=== PATIENT | male | born 2000 | race Caucasian/White ===

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

== ENCOUNTER 2021-03-27 17:08 | Emergency (ER) | payer BC, SELFPAY ==
[2021-03-27 18:55] LABS: UTC Strep Screen (Rapid) Negative (Negative)
[2021-03-27 19:01] VITALS: BP 117/61; PULSE 75; RESP 19; TEMP 37.2; O2SAT 97; BMI 23.7
--- NOTE | 2021-03-27 19:09 | HMH.EDUTC ---
[facility] [place] Clinical Impression: Encounter for laboratory testing for COVID-19 virus Disposition: Home, Self-Care Condition on Discharge: Good Instructions: DI for COVID-19 (Suspected or Confirmed ), Preventing the Spread of Coronavirus Discharge Instructions Additional Instructions: *Monitor Temp, Over the counter Motrin or Tylenol as directed/as needed Tylenol every 4 hours and Motrin every 6 hours (as long as your family doctor has told you that you can take it) for fever or pain. and straight to ER if unable to lower temp less than 101.0 after medication given *Warm salt water gargles may help to soothe the throat *Throat Lozenges *Warm fluids like tea with honey may help to soothe the throat *Sleep elevated *Humidifier/Vaporizer *Flonase 2 sprays in each nostril daily but be aware that it may take 2-3 days before you notice improvement *Bromfed may cause drowsiness. Know how it effects you (your child) before driving, caring for small child, or sending your child to school. Not other antihistamines/allergy medications while taking bromfed Your throat swab was sent for culture. Those results are typically sent to your primary care. Be sure to follow up in 2-3 days with your family doctor/primary care physician if no improvement so they can review those result and treat if necessary. If you don?t have a primary care doctor, I recommend you get one but in the mean time, you will have to return to a walk in clinic Follow up IMMEDIATELY for new or worsening symptoms or no Noticeable improvement over the next 48-72 hours. 911 for difficulty breathing or swallowing You were tested for today for COVID19 your test result should be back in the next 24-48 hours, You was given handout for instructions to log onto the [email or web address] to view your result if you are unable to log on you may call You was given a handout with instructions for Self Quarantine and Self isolation for while you wait on test results and what to do if they are positive If you are positive the Health Dept will be contacting you also Make sure to take your Vitamins Vit. C Vit D and Zinc if you can take them Forms: Work/School Release Time of Disposition: 19:13 Medical Decision Making - Ronnie Inquiry Pt receiving controlled substance: No Ronnie was queried for this patient: No Vital Signs: 09/19/21 19:01 Temperature 98.9 F Temperature Source Oral Pulse Rate [Right Brachial] 75 Respiratory Rate 19 Blood Pressure [Right Arm] 117/61 Blood Pressure Mean [Right Arm] 79 Blood Pressure Source [Right Arm] Automatic Cuff Blood Pressure Position [Right Arm] Sitting 02 Sat by Pulse Oximetry 97 Oxygen Delivery Method Room Air - Lab Data Lab Results 03/27/21 18:45: Strep Scn Rapid Clinic Negative Orders (Tests/Meds): ORDERS Category Date Time Status Covid-19 Nasal PCR ([facility]) Routine Lab 03/27/21 18:38 Received Strep Screen Confirmation Stat Micro 03/27/21 18:45 Received [facility] UTC HPI - General Stated complaint: COVID TEST Time Seen by Provider: 03/27/21 19:09 Mode of Arrival: Ambulatory Source of Information: Patient Description of Symptoms (Recalled from Triage Doc. by RN): covid symptoms. runny nose. throat. fatigue HEENT Symptoms (Recalled from RN notes): Yes Resp Symptoms (Recalled from RN notes): Yes Skin Symptoms (Recalled from RN notes): No MS Symptoms (Recalled from RN notes): No Functional Status (Recalled from RN notes): yes - History of Present Illness Provider Complaint: Patient states that he has been having body aches, chills, sore throat and feeling tired State that girlfriend is having similar symptoms so they wanted to get tested for COVID and Strep throat - Related Data Home Medications Medication Instructions Recorded Confirmed No Known Home Medications 03/27/21 03/27/21 Allergies Allergy/AdvReac Type Severity Reaction Status Date / Time Penicillins [PENICILLINS] Allergy Mild Verified 03/27/21 18:
[2021-03-27 19:33] VITALS: BP 117/61; PULSE 75; RESP 19; TEMP 37.2; O2SAT 97
== END 2021-03-27 19:33 | disposition home or self-care (01) ==
PROVIDERS: Emergency Provider Nurse Practitioner; PCP Emergency Medicine
DX: U07.1 COVID-19 (principal); Z88.0 Allergy status to penicillin
CPT/HCPCS: 87880; 99202; C9803; G0463; U0003; U0005

== ENCOUNTER 2021-07-28 20:42 | Emergency (ER) | payer BC, SELFPAY ==
[2021-07-28 21:27] VITALS: BP 93/60; PULSE 82; RESP 18; TEMP 36.8; O2SAT 99; BMI 22.4
--- NOTE | 2021-07-28 22:05 | HMH.EDUTC ---
[facility] [place] Disposition Referrals: Provider,Referral, [Primary Care Provider] - Medical Decision Making Vital Signs: 07/28/21 21:27 Temperature 98.2 F Temperature Source Oral Pulse Rate [Left] 82 Respiratory Rate 18 Blood Pressure [Right Arm] 93/60 L Blood Pressure Mean [Right Arm] 71 02 Sat by Pulse Oximetry 99 Orders (Tests/Meds): ORDERS Category Date Time Status Covid-19 Nasal PCR ([facility]) Routine Lab 07/28/21 21:29 Received [facility] [place] HPI - General Stated complaint: explosed, covid test Time Seen by Provider: 07/28/21 22:05 Mode of Arrival: Ambulatory Source of Information: Patient Limitations: No Limitations Description of Symptoms (Recalled from Triage Doc. by RN): PT WANTS A COVID TEST AFTER BEING EXPOSED TODAY. PT ALSO C/O A STOMACH ACHE AND DIARRHEA. HEENT Symptoms (Recalled from RN notes): No Resp Symptoms (Recalled from RN notes): No Skin Symptoms (Recalled from RN notes): No MS Symptoms (Recalled from RN notes): No Functional Status (Recalled from RN notes): WNL - Related Data Home Medications Medication Instructions Recorded Confirmed No Known Home Medications 03/27/21 03/27/21 Allergies Allergy/AdvReac Type Severity Reaction Status Date / Time Penicillins [PENICILLINS] Allergy Mild Verified 03/27/21 18:58 - Worker's Comp Is this a Worker's Comp case?: No [facility] History - Hepatitis A Screen Drug use history?: No High risk sexual behaviors?: No History of sexually transmitted infection?: No Currently employed?: No Childcare worker?: No Do you have indoor plumbing?: Yes Do you have electricity?: Yes Attestation statement:: This patient has been screened for Hepatitis A risk factors. - Social History Alcohol Intake: never Occupational Status: other
[2021-07-28 22:09] VITALS: BP 0/0; PULSE 0; RESP 0; TEMP -17.7; TEMP 0
== END 2021-07-28 22:10 | disposition left against medical advice (07) ==
LOC: UTC 20:46
PROVIDERS: Emergency Provider Nurse Practitioner Family
DX: Z53.21 Procedure and treatment not carried out due to patient leaving prior to being seen by health care provider (principal)

== ENCOUNTER → 2021-08-01 16:53 | Outpatient (CLI) | payer BC, SELFPAY | PROVIDERS: Visit Provider Nurse Practitioner | DX: U07.1 COVID-19 (principal) | CPT/HCPCS: C9803; U0003; U0005 ==

== ENCOUNTER 2022-01-07 20:57 | Emergency (ER) | payer BC, SELFPAY ==
[2022-01-07 20:58] VITALS: BP 118/85; PULSE 111; RESP 18; TEMP 36.9; O2SAT 95; BMI 23.7
--- NOTE | 2022-01-07 21:16 | HMH.EDMCLR ---
ED Disposition Clinical Impression: Medical clearance for incarceration Disposition: Home, Self-Care Condition on Discharge: Good Instructions: DI for Substance Use Disorder Additional Instructions: see pcp for follow up Referrals: Provider,Referral, [Primary Care Provider] - - Critical Care Critical Care Time: No Attestation: On 01/07/22, the high probability of a clinically significant, sudden or life threatening deterioration of the following system(s) required my full and direct attention, intervention and personal management. The time I documented below is in addition to time spent performing reported procedures but includes the following listed in this critical care notation. Medical Decision Making - Medical Records Medical records reviewed: Yes: I reviewed the patient's medical records. - Ronnie Inquiry Pt receiving controlled substance: No Vital Signs: 01/07/22 20:58 Temperature 98.5 F Temperature Source Oral Pulse Rate [Left] 111 H Respiratory Rate 18 Blood Pressure [Right Arm] 118/85 Blood Pressure Mean [Right Arm] 96 02 Sat by Pulse Oximetry 95 Oxygen Delivery Method Room Air Medical Decision Narrative: stable exam Medical Clearance HPI - General Chief complaint: Medical Clearance Stated complaint: medical clearance Time Seen by Provider: 01/07/22 21:16 Mode of Arrival: Ambulatory Source of Information: Patient, Medical Record Limitations: No Limitations Description of Symptoms (Recalled from ER Triage Doc. by RN): pt here for medical clearance pt has no complaints at this time - History of Present Illness HPI Narrative: no specific c/o MD complaint: medical clearance requested Reason for Medical Clearance: medical condition Place: home Traumatic Symptoms: denies traumatic injury Associated Symptoms: denies other symptoms Treatments Prior to Arrival: none Home medications: Home Medications Medication Instructions Recorded Confirmed No Known Home Medications 03/27/21 03/27/21 Allergies/Adverse reactions: Allergies Allergy/AdvReac Type Severity Reaction Status Date / Time Penicillins [PENICILLINS] Allergy Mild Verified 03/27/21 18:58 [facility] History - Hepatitis A Screen Attestation statement:: This patient has been screened for Hepatitis A risk factors. I have reviewed the patient's past medical history: Yes - Social History Alcohol Intake: never Occupational Status: other ROS Obtained: Yes All systems reviewed & no additional complaints - Constitutional Constitutional: Denies fever(s) - Eyes Eyes: Denies change in vision - ENT Ears, Nose, Mouth, and Throat: Denies sore throat - Cardiovascular Cardiovascular: Denies chest pain - Respiratory Respiratory: Denies shortness of breath - Gastrointestinal Gastrointestingal: Denies: abdominal pain - Genitourinary Male Genitourinary: Denies flank pain - Musculoskeletal Musculoskeletal: Denies joint swelling - Integumentary/Breasts Skin/Breast: Denies rash - Neurologic Neurologic: Denies headache(s), Denies seizure-like activity Physical Exam - General General appearance: alert - Head Head exam: normocephalic - Eye Eye exam: Present: PERRL, EOMI - ENT ENT exam: Present: mucous membranes moist - Neck Neck exam: Present: trachea midline - Respiratory Respiratory exam: Absent: respiratory distress - Cardiovascular Cardiovascular exam: Present: regular rate - Abdominal Exam Abdominal exam: Present: soft - Extremities Exam Extremities exam: Present: full ROM - Neurological Exam Neurological exam: Present: alert, CN II-XII intact - Skin Skin exam: Absent: rash
[2022-01-07 21:17] VITALS: BP 118/85; PULSE 91; RESP 16; TEMP 36.9; O2SAT 96
== END 2022-01-07 21:34 | disposition home or self-care (01) ==
PROVIDERS: Emergency Provider Emergency Medicine
DX: Z02.89 Encounter for other administrative examinations (principal)
CPT/HCPCS: 99282

== ENCOUNTER 2022-01-19 13:32 | Emergency (ER) | payer BC, SELFPAY ==
[2022-01-19 13:40] VITALS: BP 129/70; PULSE 94; RESP 19; TEMP 36.9; O2SAT 99; BMI 20.2
[2022-01-19 13:56] LABS: UTC Strep Screen (Rapid) Positive (Negative)
[2022-01-19 14:07] VITALS: BP 129/70; PULSE 94; RESP 19; TEMP 36.9; O2SAT 99
--- NOTE | 2022-01-19 14:08 | HMH.EDUTC ---
[facility] [place] Disposition Clinical Impression: Strep throat Disposition: Home, Self-Care Condition on Discharge: Good Instructions: Strep Throat, DI for Strep Throat Additional Instructions: *Monitor Temp, Over the counter Motrin or Tylenol as directed/as needed Tylenol every 4 hours and Motrin every 6 hours (as long as your family doctor has told you that you can take it) for fever or pain. and straight to ER if unable to lower temp less than 101.0 after medication given *Warm salt water gargles may help to soothe the throat *Throat Lozenges *Warm fluids like tea with honey may help to soothe the throat *Sleep elevated *Humidifier/Vaporizer *If you did not take Penicillin shot or was unable to, start taking antibiotic immediately and make sure that you take it for the FULL length of time although you should start to feel better in 24-48 hours *change toothbrush and toothpaste 24-48 hours after starting to take antibiotics so you do not reinfect yourself Monitor Temp. Tylenol and/or Ibuprofen as needed. ER if fever is no less than 101 despite alternating Tylenol and Ibuprofen * Encourage fluids, water, Gatorade, powerade, pedialyte if infant/toddler/or child *Cold fluids, popsicles and ice cream may feel good on his throat Follow up IMMEDIATELY for new or worsening symptoms or no Noticeable improvement over the next 48-72 hours. 911 for difficulty breathing or swallowing Prescriptions: methylPREDNISolone [Medrol 4mg tab] 4 mg PO DIRECTED #21 tab Transmission Status: Pending to [facility] Azithromycin [Z-Chu 250mg Tab] 250 mg PO DIRECTED #6 tab Transmission Status: Pending to [facility] Ondansetron [Zofran 4mg ODT] 4 mg PO TIDP PRN #9 tab PRN Reason: Nausea Transmission Status: Pending to [facility] Referrals: Provider,Referral, MD [Primary Care Provider] - As needed Time of Disposition: 14:11 Medical Decision Making - Ronnie Inquiry Pt receiving controlled substance: No Ronnie was queried for this patient: No Vital Signs: 01/19/22 13:40 Temperature 98.4 F Temperature Source Oral Pulse Rate [Left Brachial] 94 H Respiratory Rate 19 Blood Pressure [Left Arm] 129/70 Blood Pressure Mean [Left Arm] 89 Blood Pressure Source [Left Arm] Automatic Cuff Blood Pressure Position [Left Arm] Sitting 02 Sat by Pulse Oximetry 99 Oxygen Delivery Method Room Air - Lab Data Lab results reviewed: Yes: I reviewed the patient's lab results. Lab Results 01/19/22 13:55: Strep Scn Rapid Clinic Positive A [facility] [place] HPI - General Stated complaint: chest congestion, sore throat, vomiting, bodyaches Time Seen by Provider: 01/19/22 13:55 Mode of Arrival: Ambulatory Source of Information: Patient Limitations: No Limitations Description of Symptoms (Recalled from Triage Doc. by RN): PATIENT C/O SORE THROAT, VOMITING, CONGESTION AND CHILLS X 4 DAYS HEENT Symptoms (Recalled from RN notes): Yes Resp Symptoms (Recalled from RN notes): No Skin Symptoms (Recalled from RN notes): No MS Symptoms (Recalled from RN notes): No Functional Status (Recalled from RN notes): WNL - History of Present Illness Provider Complaint: Patient states that he recently got out of Shelter States that for the last 4 days he has been having sore throat, nausea, headache and body aches States that several people at nursing home had COVID but he has taken several tests and they have been negative States that he feels like he may have strep throat - Related Data Previous Rx's Medication Instructions Recorded Azithromycin [Z-Chu 250mg Tab] 250 mg PO DIRECTED #6 tab 01/19/22 Ondansetron [Zofran 4mg ODT] 4 mg PO TIDP PRN #9 tab 01/19/22 methylPREDNISolone [Medrol 4mg 4 mg PO DIRECTED #21 tab 01/19/22 tab] Allergies Allergy/AdvReac Type Severity Reaction Status Date / Time Penicillins [PENICILLINS] Allergy Mild Verified 03/27/21 18:58 - Worker's Comp Is this a Worker's Com
== END 2022-01-19 14:10 | disposition home or self-care (01) ==
PROVIDERS: Emergency Provider Nurse Practitioner
DX: J02.0 Streptococcal pharyngitis (principal)
CPT/HCPCS: 87880; 99212; G0463

== ENCOUNTER → 2022-01-24 19:40 | Outpatient (CLI) | payer BC, SELFPAY | PROVIDERS: Visit Provider Nurse Practitioner | DX: Z20.822 Contact with and (suspected) exposure to COVID-19 (principal) | CPT/HCPCS: C9803; U0003; U0005 ==

== ENCOUNTER 2022-01-29 11:14 | Emergency (ER) | payer BC, SELFPAY ==
[2022-01-29 11:20] VITALS: BP 105/59; PULSE 66; RESP 18; TEMP 36.8; O2SAT 98; BMI 20.9
--- NOTE | 2022-01-29 11:36 | HMH.EDUTC ---
[facility] [place] Clinical Impression: URI (upper respiratory infection) Qualifiers: URI type: unspecified URI Qualified Code(s): J06.9 - Acute upper respiratory infection, unspecified Disposition: Home, Self-Care Condition on Discharge: Good Instructions: DI for Cough -- Adult, DI for Nasal Congestion Additional Instructions: *Monitor Temp, Over the counter Motrin or Tylenol as directed/as needed Tylenol every 4 hours and Motrin every 6 hours (as long as your family doctor has told you that you can take it) for fever or pain. and straight to ER if unable to lower temp less than 101.0 after medication given *Warm fluids like tea with honey may help to soothe the throat *Sleep elevated *Humidifier/Vaporizer *Bromfed may cause drowsiness. Know how it effects you (your child) before driving, caring for small child, or sending your child to school. Not other antihistamines/allergy medications while taking bromfed Follow up IMMEDIATELY for new or worsening symptoms or no Noticeable improvement over the next 48-72 hours. 911 for difficulty breathing or swallowing You were tested for today for COVID19 your test result should be back in the next 24-48 hours, you may check your results on the [facility] My Health Portal Make sure to take your Vitamins Vit. C Vit D and Zinc if you can take them Prescriptions: Brompheniramine/Pseudoephed/Dm [Bromfed Dm Cough Syrup] 5 - 10 ml PO Q4-6H PRN #200 ml PRN Reason: Cough Transmission Status: Pending to [id number] Referrals: Provider,Referral, [Primary Care Provider] - As needed Time of Disposition: 11:40 Medical Decision Making - Ronnie Inquiry Pt receiving controlled substance: No Ronnie was queried for this patient: No Vital Signs: 01/29/22 11:20 Temperature 98.2 F Temperature Source Oral Pulse Rate [Left Brachial] 66 Respiratory Rate 18 Blood Pressure [Left Arm] 105/59 L Blood Pressure Mean [Left Arm] 74 Blood Pressure Source [Left Arm] Automatic Cuff Blood Pressure Position [Left Arm] Sitting 02 Sat by Pulse Oximetry 98 Oxygen Delivery Method Room Air [facility] [place] HPI - General Stated complaint: cough, congestion, runny nose Time Seen by Provider: 01/29/22 11:36 Mode of Arrival: Ambulatory Source of Information: Patient Limitations: No Limitations Description of Symptoms (Recalled from Triage Doc. by RN): PATIENT C/O COUGH AND CONGESTION X 2 WEEKS HEENT Symptoms (Recalled from RN notes): Yes Resp Symptoms (Recalled from RN notes): Yes Skin Symptoms (Recalled from RN notes): No MS Symptoms (Recalled from RN notes): No Functional Status (Recalled from RN notes): WNL - History of Present Illness Provider Complaint: Patient states that he recently had strep throat and has finished his medication but then he started with cough and nasal congestion States that he has been exposed to COVID but was tested last week and it was negative but cough has continued so he came in to get checked out - Related Data Previous Rx's Medication Instructions Recorded Azithromycin [Z-Chu 250mg Tab] 250 mg PO DIRECTED #6 tab 01/19/22 Ondansetron [Zofran 4mg ODT] 4 mg PO TIDP PRN #9 tab 01/19/22 methylPREDNISolone [Medrol 4mg 4 mg PO DIRECTED #21 tab 01/19/22 tab] Brompheniramine/Pseudoephed/Dm 5 - 10 ml PO Q4-6H PRN #200 ml 01/29/22 [Bromfed Dm Cough Syrup] Allergies Allergy/AdvReac Type Severity Reaction Status Date / Time Penicillins [PENICILLINS] Allergy Mild Verified 03/27/21 18:58 - Worker's Comp Is this a Worker's Comp case?: No [facility] History - Hepatitis A Screen Attestation statement:: This patient has been screened for Hepatitis A risk factors. I have reviewed the patient's past medical history: Yes - Social History Alcohol Intake: never Occupational Status: other ROS Obtained: Yes All systems reviewed & no additional complaints, Yes Systems reviewed as appropriate & no additional complaints - Constitutional Constitutional
[2022-01-29 12:00] VITALS: BP 105/59; PULSE 66; RESP 18; TEMP 36.8; O2SAT 98
[2022-01-29 12:12] LABS: Adenovirus,PCR Not Detected (NotDetected); Bordetella Pertussis Not Detected (NotDetected); Chlamydophila Pneumoniae, PCR Not Detected (NotDetected); Coronavirus 19, PCR Not Detected (NotDetected); Coronavirus 229E Not Detected (NotDetected); Coronavirus NL63 Not Detected (NotDetected); Coronavirus OC43 Not Detected (NotDetected); Coronovirus HKU1,PCR Not Detected (NotDetected); Human Metapneumovirus Not Detected (NotDetected); Influenza A, PCR Not Detected (NotDetected); Influenza AH1, 2009 Not Detected (NotDetected); Influenza AH1, PCR Not Detected (NotDetected); Influenza AH3,PCR Not Detected (NotDetected); Influenza B, PCR Not Detected (NotDetected); Mycoplasma Pneumoniae, PCR Not Detected (NotDetected); Parainfluenza 1, PCR Not Detected (NotDetected); Parainfluenza 2, PCR Not Detected (NotDetected); Parainfluenza 3, PCR Not Detected (NotDetected); Parainfluenza 4, PCR Not Detected (NotDetected); Respiratory Syncytial Virus Not Detected (NotDetected); Rhinovirus/Enterovirus Not Detected (NotDetected)
== END 2022-01-29 12:07 | disposition home or self-care (01) ==
PROVIDERS: Emergency Provider Nurse Practitioner
DX: J06.9 Acute upper respiratory infection, unspecified (principal)
CPT/HCPCS: 87581; 87632; 87798; 99212; C9803; G0463; U0003; U0005

== ENCOUNTER 2022-03-03 13:08 | Emergency (ER) | payer BC, SELFPAY ==
--- NOTE | 2022-03-03 14:27 | EXP.UTC ---
Discharge Plan Disposition Patient Disposition: Home, Self-Care Condition: Good Prescriptions Prescriptions: No Action azithromycin 250 MG tablet 250 mg PO DIRECTED Qty: 6 0RF Rx Instructions: Take two (2) tablets on day #1, then one (1) tablet day #2 thru #5 methylprednisolone 4 MG tablet 4 mg PO DIRECTED Qty: 21 0RF Rx Instructions: Take as directed on package instructions ondansetron 4 MG tablet,disintegrating 4 mg PO TIDP PRN (Reason: Nausea) Qty: 9 0RF uzhdofuowvgfwbu-nrjrabocc-JP 118 ML syrup 5 - 10 ml PO Q4-6H PRN (Reason: Cough) Qty: 200 0RF Referrals Referrals: Provider,Referral, MD [Primary Care Provider] - Enter time for follow up Activity Restrictions/Add. Instructions Additional Instructions/Restrictions: Drink plenty of fluids. Follow up with your regular doctor. GO TO THE ER FOR ANY WORSENING SYMPTOMS Clinical Impressions Clinical Impression: Encounter for laboratory testing for COVID-19 virus Instructions Patient Instructions: Preventing the Spread of Coronavirus Discharge Instructions Discharge ED Provider: Joel Hanna [facility] [place] General Stated complaint: Covid test Time Seen by Provider: 03/03/22 14:23 History of Present Illness Provider Complaint: He is here b/c he needs a covid-19 test to be allowed to travel. He denies any symptoms. Related Data Previous Rx's Medication Instructions Recorded azithromycin 250 mg tablet 250 mg PO DIRECTED #6 tabs 01/19/22 methylprednisolone 4 mg tablet 4 mg PO DIRECTED #21 tabs 01/19/22 ondansetron 4 mg disintegrating 4 mg PO TIDP PRN Nausea #9 tabs 01/19/22 tablet dlnlmpztdoyomtf-oyomninmjjkakhg-PH 5 - 10 ml PO Q4-6H PRN Cough #200 01/29/22 2 mg-30 mg-10 mg/5 mL oral syrup mL Allergies Allergy/AdvReac Type Severity Reaction Status Date / Time Penicillins [PENICILLINS] Allergy Mild Verified 03/27/21 18:58 [facility] Social History Smoking Status: Never smoker alcohol intake: never current occupational status: other ROS Obtained: Yes All systems reviewed & no additional complaints except as documented Constitutional Constitutional: Reports system reviewed and no additional complaints, except as documented Eyes Eyes: Reports system reviewed and no additional complaints, except as documented Cardiovascular Cardiovascular: Reports system reviewed and no additional complaints, except as documented Respiratory Respiratory: Reports system reviewed and no additional complaints, except as documented Gastrointestinal Gastrointestingal: Reports system reviewed and no additional complaints, except as documented Musculoskeletal Musculoskeletal: Reports system reviewed and no additional complaints, except as documented Integumentary/Breasts Skin/Breast: Reports system reviewed and no additional complaints, except as documented Physical Exam General General appearance: alert and in no apparent distress Head Head exam: atraumatic and normocephalic Eye Eye exam: Present normal appearance, PERRL and EOMI ENT ENT exam: Present normal exam, normal oropharynx, mucous membranes moist and TM's normal bilaterally Neck Neck exam: Present normal inspection, full ROM and trachea midline; Absent tenderness, meningismus or lymphadenopathy Chest Chest inspection: Present normal inspection and symmetric chest wall rise; Absent tenderness Respiratory Respiratory exam: Present normal lung sounds bilaterally; Absent respiratory distress, wheezes or stridor Cardiovascular Cardiovascular exam: Present regular rate, normal rhythm and normal heart sounds Abdominal Exam Abdominal exam: Present soft and normal bowel sounds; Absent distention, tenderness, guarding, rebound or rigidity Extremities Exam Extremities exam: Present normal inspection and full ROM; Absent tenderness Neurological Exam Neurological exam: Present alert and oriented X3 [facility]
[2022-03-03 14:34] VITALS: BP 110/65; PULSE 60; RESP 17; TEMP 37.3; O2SAT 99; BMI 23.1
[2022-03-03 14:39] VITALS: BP 110/65; PULSE 60; RESP 17; TEMP 37.3
== END 2022-03-03 14:39 | disposition home or self-care (01) ==
PROVIDERS: Emergency Provider Nurse Practitioner Family
DX: Z03.89 Encounter for observation for other suspected diseases and conditions ruled out (principal); Z20.822 Contact with and (suspected) exposure to COVID-19; Z79.52 Long term (current) use of systemic steroids; Z88.0 Allergy status to penicillin
CPT/HCPCS: 99213; C9803; G0463; U0003; U0005

== ENCOUNTER 2022-05-18 00:06 | Emergency (ER) | payer BC, SELFPAY ==
[2022-05-18 00:08] VITALS: BP 140/92; PULSE 103; RESP 18; TEMP 37.1; O2SAT 97; BMI 22.4
--- NOTE | 2022-05-18 01:18 | HMH.EDNVD ---
Discharge Plan Disposition Patient Disposition: Home, Self-Care Chief Complaint: Nausea/Vomiting/Diarrhea Prescriptions Prescriptions: No Action azithromycin 250 MG tablet 250 mg PO DIRECTED Qty: 6 0RF Rx Instructions: Take two (2) tablets on day #1, then one (1) tablet day #2 thru #5 methylprednisolone 4 MG tablet 4 mg PO DIRECTED Qty: 21 0RF Rx Instructions: Take as directed on package instructions ondansetron 4 MG tablet,disintegrating 4 mg PO TIDP PRN (Reason: Nausea) Qty: 9 0RF blxiyoxrbzzwyoc-bkhlifgvb-DL 118 ML syrup 5 - 10 ml PO Q4-6H PRN (Reason: Cough) Qty: 200 0RF Referrals Follow up/Referrals: Provider,Referral, MD [Primary Care Provider] - See instructions Clinical Impressions Clinical Impression: Gastroenteritis Stand Alone Forms Stand Alone Forms: Work/School Release Instructions Patient Instructions: DI for Nausea -- Adult Discharge ED Provider: Srinivasan Crowder Nausea/Vomiting/Diarrhea HPI General Chief complaint: Nausea/Vomiting/Diarrhea Stated complaint: vomiting X 1 week Time Seen by Provider: 05/18/22 01:18 Mode of Arrival: Ambulatory Source of Information: Patient, Significant Other and Medical Record Limitations: No Limitations Description of Symptoms (Recalled from ER Triage Doc. by RN): Pt c/o vomiting prior week. Denies any diarrhea. States that the vomiting happens randomly. History of Present Illness HPI Narrative: over the last week with vomiting complaint: nausea and vomiting Onset (ago): day(s) Associated Abdominal Pain: No Severity: moderate Associated symptoms: denies other symptoms Related Data Previous Rx's Medication Instructions Recorded azithromycin 250 mg tablet 250 mg PO DIRECTED #6 tabs 01/19/22 methylprednisolone 4 mg tablet 4 mg PO DIRECTED #21 tabs 01/19/22 ondansetron 4 mg disintegrating 4 mg PO TIDP PRN Nausea #9 tabs 01/19/22 tablet dqehehtfjmqiusx-xblymlxclcntmxi-TZ 5 - 10 ml PO Q4-6H PRN Cough #200 01/29/22 2 mg-30 mg-10 mg/5 mL oral syrup mL Allergies Allergy/AdvReac Type Severity Reaction Status Date / Time Penicillins [PENICILLINS] Allergy Mild Verified 03/27/21 18:58 PFSH PFSH Social History (Updated 08/26/22 @ 22:33 by TIFFANIE Kaba Smoking Status: Current every day smoker alcohol intake: never current occupational status: other Travel in the last 8 weeks: None ROS Obtained: Yes All systems reviewed & no additional complaints except as documented Physical Exam General General appearance: alert Head Head exam: normocephalic Eye Eye exam: Present PERRL and EOMI ENT ENT exam: Present mucous membranes moist Neck Neck exam: Present trachea midline Chest Chest inspection: Absent rash Respiratory Respiratory exam: Absent respiratory distress Cardiovascular Cardiovascular exam: Present regular rate Abdominal Exam Abdominal exam: Present soft; Absent tenderness, guarding, rebound or rigidity Extremities Exam Extremities exam: Present full ROM Neurological Exam Neurological exam: Present alert, oriented X3 and CN II-XII intact; Absent motor sensory deficit Skin Skin exam: Absent rash Medical Decision Making Medical Records Medical records reviewed: Yes I reviewed the patient's medical records. Ronnie Inquiry Pt receiving controlled substance: No Vital Signs: 05/18/22 00:08 Temperature 98.7 F Temperature Source Oral Pulse Rate [Apical] 103 H Respiratory Rate 18 Blood Pressure [Right Arm] 140/92 H Blood Pressure Mean [Right Arm] 108 Blood Pressure Source [Right Arm] Automatic Cuff Blood Pressure Position [Right Arm] Sitting 02 Sat by Pulse Oximetry 97 Oxygen Delivery Method Room Air Lab Data Lab results reviewed: Yes I reviewed the patient's lab results. Medical Decision Narrative: has vomiting with stable exam Critical Care Time Critical Care Time Critical Care Time: No Attestation: On 05/18/22, the high probability of a clinically
[2022-05-18 01:23] VITALS: BP 121/64; PULSE 84; RESP 18; TEMP 36.6; O2SAT 96
== END 2022-05-18 01:34 | disposition home or self-care (01) ==
PROVIDERS: Emergency Provider Emergency Medicine
DX: R11.2 Nausea with vomiting, unspecified (principal); R19.7 Diarrhea, unspecified; R05.9 Cough, unspecified; F17.210 Nicotine dependence, cigarettes, uncomplicated; Z79.52 Long term (current) use of systemic steroids; Z79.899 Other long term (current) drug therapy; Z88.0 Allergy status to penicillin
CPT/HCPCS: 99283

== ENCOUNTER 2022-05-26 22:49 | Emergency (ER) | payer BC, SELFPAY ==
[2022-05-26 22:49] VITALS: BP 142/90; PULSE 105; RESP 20; TEMP 36.9; O2SAT 97; BMI 22.4
--- NOTE | 2022-05-26 23:47 | HMH.EDNVD ---
Discharge Plan Disposition Patient Disposition: Home, Self-Care Prescriptions Prescriptions: New ondansetron HCl 4 mg Tablet 4 mg PO Q8H PRN (Reason: Nausea) Qty: 20 0RF No Action azithromycin 250 MG tablet 250 mg PO DIRECTED Qty: 6 0RF Rx Instructions: Take two (2) tablets on day #1, then one (1) tablet day #2 thru #5 methylprednisolone 4 MG tablet 4 mg PO DIRECTED Qty: 21 0RF Rx Instructions: Take as directed on package instructions ondansetron 4 MG tablet,disintegrating 4 mg PO TIDP PRN (Reason: Nausea) Qty: 9 0RF tqhglvabbrgmkwc-dgqrfbixs-PU 118 ML syrup 5 - 10 ml PO Q4-6H PRN (Reason: Cough) Qty: 200 0RF Referrals Follow up/Referrals: Provider,Referral, MD [Primary Care Provider] - See instructions Clinical Impressions Clinical Impression: Vomiting, URI (upper respiratory infection) Stand Alone Forms Stand Alone Forms: Work/School Release Instructions Patient Instructions: DI for Nausea -- Adult Discharge ED Provider: Srinivasan Crowder Nausea/Vomiting/Diarrhea HPI General Chief complaint: Nausea/Vomiting/Diarrhea Stated complaint: vomiting Time Seen by Provider: 05/26/22 23:47 Mode of Arrival: Ambulatory Source of Information: Patient and Medical Record Limitations: No Limitations Description of Symptoms (Recalled from ER Triage Doc. by RN): pt states that he has been vomiting for a week but today he threw up 5 or 6 times today pt stated that he felt better after he ate something. pt stated it felt like the flu when he was throwing up History of Present Illness HPI Narrative: pt with flu like sx and vomiting and presented for [facility]OR[facility] complaint: nausea and vomiting Onset (ago): hour(s) Associated Abdominal Pain: No Associated symptoms: denies other symptoms Related Data Previous Rx's Medication Instructions Recorded azithromycin 250 mg tablet 250 mg PO DIRECTED #6 tabs 01/19/22 methylprednisolone 4 mg tablet 4 mg PO DIRECTED #21 tabs 01/19/22 ondansetron 4 mg disintegrating 4 mg PO TIDP PRN Nausea #9 tabs 01/19/22 tablet kwlvkelitkpkurf-wktnoasetupjcew-YS 5 - 10 ml PO Q4-6H PRN Cough #200 01/29/ 2 mg-30 mg-10 mg/5 mL oral syrup mL ondansetron HCl 4 mg tablet 4 mg PO Q8H PRN Nausea #20 tabs 05/27/22 Allergies Allergy/AdvReac Type Severity Reaction Status Date / Time Penicillins [PENICILLINS] Allergy Mild Verified 03/27/21 18:58 PFSH PFS Social History (Updated 03/03/22 @ 22:33 by Joel Hanna APRN) Smoking Status: Current some day smoker alcohol intake: never current occupational status: other Travel in the last 8 weeks: None ROS Obtained: Yes All systems reviewed & no additional complaints except as documented Physical Exam General General appearance: alert Head Head exam: normocephalic Eye Eye exam: Present PERRL and EOMI ENT ENT exam: Present mucous membranes moist Neck Neck exam: Present trachea midline Respiratory Respiratory exam: Absent respiratory distress Cardiovascular Cardiovascular exam: Present regular rate Abdominal Exam Abdominal exam: Present soft Extremities Exam Extremities exam: Present full ROM Neurological Exam Neurological exam: Present alert, oriented X3 and CN II-XII intact Psychiatric Psychiatric exam: Present normal affect Skin Skin exam: Absent rash Medical Decision Making Medical Records Medical records reviewed: Yes I reviewed the patient's medical records. Ronnie Inquiry Pt receiving controlled substance: No Vital Signs: 05/26/22 22:49 Temperature 98.4 F Temperature Source Oral Pulse Rate [Left] 105 H Respiratory Rate 20 Blood Pressure [Right Arm] 142/90 H Blood Pressure Mean [Right Arm] 107 02 Sat by Pulse Oximetry 97 Oxygen Delivery Method Room Air Lab Data Lab results reviewed: Yes I reviewed the patient's lab results. Orders (Tests/Meds): ORDERS Category Date Time Status Rapid PCR Covid and Flu A/B Stat Lab 05/26/22 23:50 Received M
[2022-05-26 23:55] LABS: Coronavirus 19, PCR Not Detected (NotDetected); Influenza A, PCR Not Detected (NotDetected); Influenza B, PCR Not Detected (NotDetected)
[2022-05-26 23:59] VITALS: BP 142/90; PULSE 91; RESP 18; TEMP 36.9; O2SAT 97
== END 2022-05-27 00:07 | disposition home or self-care (01) ==
PROVIDERS: Emergency Provider Emergency Medicine
DX: J06.9 Acute upper respiratory infection, unspecified (principal); R11.2 Nausea with vomiting, unspecified; Z88.0 Allergy status to penicillin; Z72.0 Tobacco use
CPT/HCPCS: 99283; C9803; U0003; U0005

== ENCOUNTER 2022-06-20 22:38 | Emergency (ER) | payer BC, SELFPAY ==
[2022-06-20 22:52] VITALS: BP 123/78; PULSE 77; RESP 18; TEMP 36.6; O2SAT 97; BMI 23.1
--- NOTE | 2022-06-20 22:54 | PC.NURSE ---
Patient presents to er pov. States that he has been vomiting with a headache for the prior two days and was exposed to his mother who has the flu. Despite his symptoms, patients initially requests to not be treated, just to be given a work excuse and a rapid flu test and would like to just get his results tomorrow. However, per protocol, patient will need to see physician before receiving a work excuse since he is symptomatic. Additionally, work note is pending flu results as his length of time off from work will depend on those results.
[2022-06-20 23:31] LABS: Coronavirus 19, PCR Not Detected (NotDetected); Influenza A, PCR Not Detected (NotDetected); Influenza B, PCR Not Detected (NotDetected)
--- NOTE | 2022-06-20 23:32 | HMH.EDNVD ---
Discharge Plan Disposition Patient Disposition: Home, Self-Care Prescriptions Prescriptions: New ondansetron HCl 4 mg Tablet 4 mg PO Q8H PRN (Reason: Nausea) Qty: 20 0RF No Action azithromycin 250 MG tablet 250 mg PO DIRECTED Qty: 6 0RF Rx Instructions: Take two (2) tablets on day #1, then one (1) tablet day #2 thru #5 methylprednisolone 4 MG tablet 4 mg PO DIRECTED Qty: 21 0RF Rx Instructions: Take as directed on package instructions ondansetron 4 MG tablet,disintegrating 4 mg PO TIDP PRN (Reason: Nausea) Qty: 9 0RF kuqsnzyiquotpdw-ghevuextu-DE 118 ML syrup 5 - 10 ml PO Q4-6H PRN (Reason: Cough) Qty: 200 0RF ondansetron HCl 4 mg Tablet 4 mg PO Q8H PRN (Reason: Nausea) Qty: 20 0RF Referrals Follow up/Referrals: Provider,Referral, MD [Primary Care Provider] - See instructions Clinical Impressions Clinical Impression: Acute viral syndrome Stand Alone Forms Stand Alone Forms: Work/School Release Instructions Patient Instructions: DI for Nausea -- Adult Discharge ED Provider: Srinivasan Crowder Nausea/Vomiting/Diarrhea HPI General Chief complaint: Nausea/Vomiting/Diarrhea Stated complaint: vomiting, sore throat, FREY Time Seen by Provider: 06/20/22 23:32 Mode of Arrival: Ambulatory Source of Information: Patient and Medical Record Limitations: No Limitations Description of Symptoms (Recalled from ER Triage Doc. by RN): Patient presents to er requesting flu swab and work note. Patient says his mother has had the flu and he has been vomiting for 2 days with a headache. History of Present Illness HPI Narrative: pt with gi sx and congestion with exposure to flu - complaint: vomiting Onset (ago): day(s) Associated Abdominal Pain: No Severity: moderate Context: sick contacts Related Data Previous Rx's Medication Instructions Recorded azithromycin 250 mg tablet 250 mg PO DIRECTED #6 tabs 01/19/22 methylprednisolone 4 mg tablet 4 mg PO DIRECTED #21 tabs 01/19/22 ondansetron 4 mg disintegrating 4 mg PO TIDP PRN Nausea #9 tabs 01/19/22 tablet qbhrmxezfnsmppc-loxurezsvqakloj-JY 5 - 10 ml PO Q4-6H PRN Cough #200 01/29/22 2 mg-30 mg-10 mg/5 mL oral syrup mL ondansetron HCl 4 mg tablet 4 mg PO Q8H PRN Nausea #20 tabs 05/27/22 ondansetron HCl 4 mg tablet 4 mg PO Q8H PRN Nausea #20 tabs 06/20/22 Allergies Allergy/AdvReac Type Severity Reaction Status Date / Time Penicillins [PENICILLINS] Allergy Mild Verified 03/27/21 18:58 [facility] Disclaimer: The information contained in this section may have been updated after the patient was seen, as this information can be updated by other users. Social History (Updated 03/03/22 @ 22:33 by Joel Hanna APRN) Smoking Status: Current every day smoker alcohol intake: never current occupational status: other Travel in the last 8 weeks: None ROS Obtained: Yes All systems reviewed & no additional complaints except as documented Physical Exam General General appearance: alert Head Head exam: normocephalic Eye Eye exam: Present PERRL and EOMI ENT ENT exam: Present mucous membranes moist Neck Neck exam: Present trachea midline Respiratory Respiratory exam: Absent respiratory distress Cardiovascular Cardiovascular exam: Present regular rate Abdominal Exam Abdominal exam: Present soft Extremities Exam Extremities exam: Present full ROM Neurological Exam Neurological exam: Present alert, oriented X3 and CN II-XII intact Psychiatric Psychiatric exam: Present normal affect Skin Skin exam: Absent rash Medical Decision Making Medical Records Medical records reviewed: Yes I reviewed the patient's medical records. Ronnie Inquiry Pt receiving controlled substance: No Vital Signs: 06/20/22 22:52 Temperature 97.8 F Temperature Source Oral Pulse Rate [Apical] 77 Respiratory Rate 18 Blood Pressure [Right Arm] 123/78 Blood Pressure Mean [Right Arm] 93 Blood Pressure Source [Right Arm] Auto
[2022-06-20 23:38] VITALS: BP 118/72; PULSE 88; RESP 20; TEMP 37; O2SAT 98
== END 2022-06-20 23:43 | disposition home or self-care (01) ==
PROVIDERS: Emergency Provider Emergency Medicine
DX: R11.2 Nausea with vomiting, unspecified (principal); R19.7 Diarrhea, unspecified; B34.9 Viral infection, unspecified
CPT/HCPCS: 99283; C9803; U0003; U0005

== ENCOUNTER 2022-06-27 23:25 | Emergency (ER) | payer BC, SELFPAY ==
[2022-06-27 23:26] VITALS: BP 131/60; PULSE 83; RESP 16; TEMP 36.9; O2SAT 99; BMI 22.4
[2022-06-27 23:40] LABS: Microscopic, Urine URINE MICROSCOPIC (MICROSCOPIC)
[2022-06-27 23:59] LABS: Chloride 101 mmol/L (98-107); Sodium 141 mmol/L (136-145)
[2022-06-27 23:59] LABS: Appearance,Urine CLOUDY (Clear); Blood, Urine 3+ (Negative); Color,Urine BROWN (Yellow); Glucose,Urine (UA) Negative (Negative); Ketones,Urine Negative (Negative); Leukocyte Esterase,Urine Negative (Negative); Nitrate,Urine Negative (Negative); PH,Urine 6.5 (5.0-8.5); Protein,Urine 1+ (Negative); Specific Gravity, Urine 1.025 (1.005-1.030)
[2022-06-28] LABS: Potassium 3.5 mmoL/L (3.5-5.1)
--- NOTE | 2022-06-28 | CT_ITS ---
PROCEDURE INFORMATION: Exam: CT Abdomen And Pelvis With Contrast Exam date and time: 06/28/2022 12:06 AM Age: 22 years old Clinical indication: Abdominal pain; Localized; Left lower quadrant (llq); Additional info: Llq pain TECHNIQUE: Imaging protocol: Computed tomography of the abdomen and pelvis with contrast. Radiation optimization: All CT scans at this facility use at least one of these dose optimization techniques: automated exposure control; mA and/or kV adjustment per patient size (includes targeted exams where dose is matched to clinical indication); or iterative reconstruction. Contrast material: ISOVUE; Contrast volume: 75 ml; Contrast route: IV; COMPARISON: No relevant prior studies available. FINDINGS: Lungs: The lung bases are clear. No pleural effusion. Liver: Unremarkable. No mass. Gallbladder and bile ducts: Unremarkable. No calcified stones. No ductal dilation. Pancreas: Unremarkable. Spleen: Unremarkable. 1 cm accessory splenule left upper quadrant. Adrenal glands: Unremarkable. Kidneys and ureters: No renal mass or hydronephrosis. Stomach and bowel: There is mild mucosal thickening of multiple loops of proximal nondilated small bowel. No evidence of obstruction. No colonic diverticulosis or CT evidence of acute diverticulitis. Appendix: The appendix is not identified with certainty on the study. There is no convincing evidence of acute appendicitis. Intraperitoneal space: No free air. No significant fluid collection. Retroperitoneal space: No bulky lymphadenopathy. Vasculature: Unremarkable. No abdominal aortic aneurysm. Lymph nodes: Unremarkable. No enlarged lymph nodes. Urinary bladder: Unremarkable as visualized. Reproductive: Unremarkable as visualized. Bones/joints: Unremarkable. No acute osseous abnormality. Soft tissues: Unremarkable. IMPRESSION: 1. Findings suggest enteritis. 2. No evidence of appendicitis.
[2022-06-28 00:02] LABS: Alanine Aminotransferase 24 U/L (12-78); Alkaline Phosphatase 78 U/L (38-126); Amylase 68 U/L (30-110); Anion Gap 10.5 mEq/L (5-15); Aspartate Amino Transferase 32 U/L (17-59); Blood Urea Nitrogen 12 mg/dl (9-20); Calcium 9.5 mg/dl (8.4-10.2); Carbon Dioxide 33 mmol/L (22.0-30.0); Creatinine Clearance Estimated 142 mL/min (50-200); Estimated Glomerular Filt Rate 107 ml/min (>60); GFR (African American) 129 ML/MIN (>60); Glucose 98 mg/dl (74-100); Lipase 120 U/L (23-300)
--- NOTE | 2022-06-28 00:02 | PC.NURSE ---
Pt gone to RAD
[2022-06-28 00:03] LABS: Albumin Level 4.8 g/dl (3.5-5.0); Globulin 2.4 g/dL (1.3-3.2); Total Protein,Serum 7.2 g/dl (6.3-8.2)
[2022-06-28 00:04] LABS: Bilirubin,Total 0.1 mg/dl (0.2-1.3)
[2022-06-28 00:04] LABS: Bilirubin,Urine Negative (Negative)
--- NOTE | 2022-06-28 00:15 | PC.NURSE ---
Pt back from RAD
[2022-06-28 00:22] LABS: Bacteria,Urine 1+ /lpf; RBC,Urine TNTC #/hpf (0-3); WBC,Urine Occasional #/hpf (0-3)
[2022-06-28 00:22] LABS: Basophils # 0.1 K/mm3 (0-0.2); Basophils % 1.1 % (0.1-2.0); Eosinophils # 0.1 K/mm3 (0.0-0.4); Eosinophils % 1.7 % (0.1-12.0); Hematocrit 41.3 % (42.0-52.0); Hemoglobin 13.5 g/dL (14.1-18.0); Lymphocytes % 27.8 % (10-50); Mean Corpuscular HGB Conc 32.5 g/dL (31.8-35.4); Mean Corpuscular Volume 95.3 fl (80-94); Mean Platelet Volume 7.5 fl (7.4-10.4); Monocytes # 0.4 K/mm3 (0.1-1.0); Monocytes % 5.1 % (1.7-9.3); Neutrophils # 4.6 K/mm3 (1.8-7.8); Neutrophils % 64.4 % (37.0-80.0); Platelet Count 285 K/mm3 (142-424); Red Blood Count 4.34 M/mm3 (4.60-6.20); Red Cell Distribution Width 12.9 % (11.5-17.5); White Blood Count 7.1 K/mm3 (4.8-10.8)
--- NOTE | 2022-06-28 01:03 | HMH.EDABDPAI ---
Discharge Plan Disposition Patient Disposition: Home, Self-Care Chief Complaint: Abdominal Pain Prescriptions Prescriptions: No Action azithromycin 250 MG tablet 250 mg PO DIRECTED Qty: 6 0RF Rx Instructions: Take two (2) tablets on day #1, then one (1) tablet day #2 thru #5 methylprednisolone 4 MG tablet 4 mg PO DIRECTED Qty: 21 0RF Rx Instructions: Take as directed on package instructions ondansetron 4 MG tablet,disintegrating 4 mg PO TIDP PRN (Reason: Nausea) Qty: 9 0RF psddbwwadexxnfj-fugyojbsz-GJ 118 ML syrup 5 - 10 ml PO Q4-6H PRN (Reason: Cough) Qty: 200 0RF ondansetron HCl 4 mg Tablet 4 mg PO Q8H PRN (Reason: Nausea) Qty: 20 0RF ondansetron HCl 4 mg Tablet 4 mg PO Q8H PRN (Reason: Nausea) Qty: 20 0RF Referrals Follow up/Referrals: Provider,Referral, MD [Primary Care Provider] - See instructions Clinical Impressions Clinical Impression: Hematuria Instructions Patient Instructions: DI for Hematuria Discharge ED Provider: Srinivasan Crowder Abdominal Pain HPI General Chief Complaint: Abdominal Pain Stated Complaint: peeing blood Time Seen by Provider: 06/28/22 00:00 Mode of Arrival: Ambulatory Source of Information: Patient and Medical Record Limitations: No Limitations Description of Symptoms (Recalled from ER Triage Doc. by RN): pt states he was urinating blood on sunday and resolved on sunday. pt c/o LLQ pain that started yesterday. pt denies any n/v/d History of Present Illness HPI narrative: episode of blood in urine a few days ago - now with abd pain - no fever/rash or trauma complaint: abdominal pain Onset (ago): day(s) Consistency: intermittent Severity: moderate Associated symptoms: denies other symptoms Related Data Previous Rx's Medication Instructions Recorded azithromycin 250 mg tablet 250 mg PO DIRECTED #6 tabs 01/19/22 methylprednisolone 4 mg tablet 4 mg PO DIRECTED #21 tabs 01/19/22 ondansetron 4 mg disintegrating 4 mg PO TIDP PRN Nausea #9 tabs 01/19/22 tablet aqtvyninvozfcat-czfprwkymiemjdo-ZT 5 - 10 ml PO Q4-6H PRN Cough #200 07/24/22 2 mg-30 mg-10 mg/5 mL oral syrup mL ondansetron HCl 4 mg tablet 4 mg PO Q8H PRN Nausea #20 tabs 05/27/22 ondansetron HCl 4 mg tablet 4 mg PO Q8H PRN Nausea #20 tabs 06/20/22 Allergies Allergy/AdvReac Type Severity Reaction Status Date / Time Penicillins [PENICILLINS] Allergy Mild Verified 03/27/21 18:58 PFSH PFS Disclaimer: The information contained in this section may have been updated after the patient was seen, as this information can be updated by other users. Social History (Updated 03/03/22 @ 22:33 by Joel Hanna APRN) Smoking Status: Current every day smoker alcohol intake: never current occupational status: other Travel in the last 8 weeks: None ROS Obtained: Yes All systems reviewed & no additional complaints except as documented Physical Exam General General appearance: alert Head Head exam: normocephalic Eye Eye exam: Present PERRL and EOMI ENT ENT exam: Present mucous membranes moist Neck Neck exam: Present full ROM Respiratory Respiratory exam: Absent respiratory distress Cardiovascular Cardiovascular exam: Present regular rate Abdominal Exam Abdominal exam: Present soft; Absent tenderness, guarding or rebound Extremities Exam Extremities exam: Present full ROM Back Exam Back exam: Absent CVA tenderness (L) Neurological Exam Neurological exam: Present alert, oriented X3 and CN II-XII intact Psychiatric Psychiatric exam: Present normal affect Skin Skin exam: Absent rash Medical Decision Making Medical Records Medical records reviewed: Yes I reviewed the patient's medical records. Ronnie Inquiry Pt receiving controlled substance: No Vital Signs: 06/27/22 23:26 Temperature 98.5 F Temperature Source Oral Pulse Rate [Right] 83 Respiratory Rate 16 Blood Pressure [Right Arm] 131/60 Blood Pressure Mean [Right Arm] 83 02 Sa
[2022-06-28 02:00] VITALS: BP 127/87; PULSE 81; RESP 16; TEMP 36.9; O2SAT 99
== END 2022-06-28 02:02 | disposition home or self-care (01) ==
PROVIDERS: Emergency Provider Emergency Medicine
DX: R10.32 Left lower quadrant pain (principal); R31.9 Hematuria, unspecified; R11.0 Nausea; F17.200 Nicotine dependence, unspecified, uncomplicated; Z88.0 Allergy status to penicillin
CPT/HCPCS: 74177; 80053; 81001; 82150; 83690; 85025; 87086; 96361; 96374; 99285; Q9967

== ENCOUNTER 2022-07-03 00:42 | Emergency (ER) | payer BC, SELFPAY ==
[2022-07-03 00:43] VITALS: BP 103/67; PULSE 104; RESP 18; TEMP 36.7; O2SAT 100; BMI 22.4
--- NOTE | 2022-07-03 01:33 | CT_ITS ---
PROCEDURE INFORMATION: Exam: CT Abdomen And Pelvis With Contrast Exam date and time: 07/03/2022 2:36 AM Age: 22 years old Clinical indication: Nausea and vomiting; Abdominal pain; Additional info: Abd pain, nausea, vomiting. TECHNIQUE: Imaging protocol: Computed tomography of the abdomen and pelvis with contrast. Radiation optimization: All CT scans at this facility use at least one of these dose optimization techniques: automated exposure control; mA and/or kV adjustment per patient size (includes targeted exams where dose is matched to clinical indication); or iterative reconstruction. Contrast material: ISOVUE; Contrast volume: 75 ml; Contrast route: IV; COMPARISON: CT ABDOMEN PELVIS W CON 06/28/2022 12:06 AM FINDINGS: Liver: No acute findings. No mass. Gallbladder and bile ducts: No acute findings, calcified stones or ductal dilation. Pancreas: No acute findings, focal abnormality or ductal dilation. Spleen: No splenomegaly or focal abnormality. Adrenal glands: Normal. No mass. Kidneys and ureters: There is a 2 x 4 x 4 mm calculus in the upper right ureter at the ureteropelvic junction. There is subtle right-sided renal pelvis fullness. Stomach and bowel: No obstruction. No mucosal thickening. Appendix: No evidence of appendicitis. Intraperitoneal space: No free air. No significant fluid collection. Vasculature: No abdominal aortic aneurysm. Lymph nodes: No pathologically enlarged lymph nodes. Urinary bladder: Unremarkable as visualized. Reproductive: Unremarkable as visualized. Bones/joints: No acute fracture. Soft tissues: No acute findings. IMPRESSION: Calculus in the upper right ureter at the ureteropelvic junction with subtle associated pelviectasis.
[2022-07-03 01:37] LABS: Coronavirus 19, PCR Not Detected (NotDetected); Influenza A, PCR Not Detected (NotDetected); Influenza B, PCR Not Detected (NotDetected)
[2022-07-03 01:45] LABS: Basophils % 0.3 % (0.1-2.0); Eosinophils # 0.2 K/mm3 (0.0-0.4); Eosinophils % 1.5 % (0.1-12.0); Hematocrit 46.8 % (42.0-52.0); Hemoglobin 15.4 g/dL (14.1-18.0); Lymphocytes # 0.4 K/mm3 (0.7-4.5); Mean Corpuscular Hemoglobin 31.7 pg (27.0-31.2); Mean Platelet Volume 7.1 fl (7.4-10.4); Monocytes # 0.5 K/mm3 (0.1-1.0); Monocytes % 3.4 % (1.7-9.3); Neutrophils # 12.7 K/mm3 (1.8-7.8); Neutrophils % 91.8 % (37.0-80.0); Platelet Count 287 K/mm3 (142-424); Red Blood Count 4.88 M/mm3 (4.60-6.20); Red Cell Distribution Width 13.1 % (11.5-17.5); White Blood Count 13.8 K/mm3 (4.8-10.8)
[2022-07-03 01:47] LABS: MANUAL DIFFERENTIAL MANUAL DIFFERENTIAL (MANUAL DIFF)
[2022-07-03 01:55] LABS: Alanine Aminotransferase 31 U/L (12-78); Albumin Level 5.1 g/dl (3.5-5.0); Albumin/Globulin Ratio 1.9 (1.1-1.8); Alkaline Phosphatase 74 U/L (38-126); Anion Gap 14.9 mEq/L (5-15); Aspartate Amino Transferase 46 U/L (17-59); Bilirubin,Total 0.7 mg/dl (0.2-1.3); Blood Urea Nitrogen 13 mg/dl (9-20); Calcium 9.9 mg/dl (8.4-10.2); Carbon Dioxide 27 mmol/L (22.0-30.0); Chloride 102 mmol/L (98-107); Creatinine Clearance Estimated 159 mL/min (50-200); Estimated Glomerular Filt Rate 122 ml/min (>60); GFR (African American) 148 ML/MIN (>60); Globulin 2.7 g/dL (1.3-3.2); Glucose 131 mg/dl (74-100); Lymphocytes % 11 % (10-50); Neutrophils % 80 % (42-76); Platelet Estimate Normal; Potassium 3.9 mmoL/L (3.5-5.1); RBC Morphology Normal; Sodium 140 mmol/L (136-145); Total Cells Counted 100; Total Protein,Serum 7.8 g/dl (6.3-8.2)
[2022-07-03 02:01] LABS: Strep Scrn Group A (Rapid) Negative (Negative)
--- NOTE | 2022-07-03 02:04 | HMH.EDNVD ---
Discharge Plan Disposition Patient Disposition: Home, Self-Care Prescriptions Prescriptions: New ondansetron HCl 4 mg Tablet 4 mg PO Q8H PRN (Reason: Nausea) Qty: 20 0RF tamsulosin [Flomax] 0.4 mg capsule 0.4 mg PO DAILY Qty: 10 0RF No Action azithromycin 250 MG tablet 250 mg PO DIRECTED Qty: 6 0RF Rx Instructions: Take two (2) tablets on day #1, then one (1) tablet day #2 thru #5 methylprednisolone 4 MG tablet 4 mg PO DIRECTED Qty: 21 0RF Rx Instructions: Take as directed on package instructions ondansetron 4 MG tablet,disintegrating 4 mg PO TIDP PRN (Reason: Nausea) Qty: 9 0RF [id number] 118 ML syrup 5 - 10 ml PO Q4-6H PRN (Reason: Cough) Qty: 200 0RF ondansetron HCl 4 mg Tablet 4 mg PO Q8H PRN (Reason: Nausea) Qty: 20 0RF ondansetron HCl 4 mg Tablet 4 mg PO Q8H PRN (Reason: Nausea) Qty: 20 0RF Referrals Follow up/Referrals: Provider,Referral, MD [Primary Care Provider] - See instructions Clinical Impressions Clinical Impression: Renal colic on right side Instructions Patient Instructions: DI for Nausea -- Adult, DI for Kidney Stones Discharge ED Provider: Srinivasan Crowder Nausea/Vomiting/Diarrhea HPI General Chief complaint: Nausea/Vomiting/Diarrhea Stated complaint: vomiting,fever, chills Time Seen by Provider: 07/03/22 02:05 Mode of Arrival: Ambulatory Source of Information: Patient and Medical Record Limitations: No Limitations Description of Symptoms (Recalled from ER Triage Doc. by RN): pt c/o vomiting for an hour. feels so bad History of Present Illness HPI Narrative: pt with acute abd pain and vomiting - no fever or gross hematuria complaint: nausea, vomiting and abdominal pain Onset (ago): day(s) Associated Abdominal Pain: Yes Location of pain: diffuse Severity: similar to previous episodes Consistency: intermittent Associated symptoms: denies other symptoms Related Data Previous Rx's Medication Instructions Recorded azithromycin 250 mg tablet 250 mg PO DIRECTED #6 tabs 01/19/22 methylprednisolone 4 mg tablet 4 mg PO DIRECTED #21 tabs 01/19/22 ondansetron 4 mg disintegrating 4 mg PO TIDP PRN Nausea #9 tabs 01/19/22 tablet rsbsehzcfenffsj-vgjxzrskgeksoic-WK 5 - 10 ml PO Q4-6H PRN Cough #200 01/29/22 2 mg-30 mg-10 mg/5 mL oral syrup mL ondansetron HCl 4 mg tablet 4 mg PO Q8H PRN Nausea #20 tabs 05/27/22 ondansetron HCl 4 mg tablet 4 mg PO Q8H PRN Nausea #20 tabs 06/20/22 ondansetron HCl 4 mg tablet 4 mg PO Q8H PRN Nausea #20 tabs 07/03/22 tamsulosin 0.4 mg capsule (Flomax) 0.4 mg PO DAILY #10 caps 07/03/22 Allergies Allergy/AdvReac Type Severity Reaction Status Date / Time Penicillins [PENICILLINS] Allergy Mild Verified 03/27/21 18:58 PFSH PFS Disclaimer: The information contained in this section may have been updated after the patient was seen, as this information can be updated by other users. Social History (Updated 03/03/22 @ 22:33 by Joel Hanna APRN) Smoking Status: Current every day smoker alcohol intake: never current occupational status: other Travel in the last 8 weeks: None ROS Obtained: Yes All systems reviewed & no additional complaints except as documented Physical Exam General General appearance: alert Head Head exam: normocephalic Eye Eye exam: Present PERRL and EOMI ENT ENT exam: Present mucous membranes moist Neck Neck exam: Present trachea midline Respiratory Respiratory exam: Present normal lung sounds bilaterally; Absent respiratory distress Cardiovascular Cardiovascular exam: Present regular rate; Absent systolic murmur Abdominal Exam Abdominal exam: Present soft; Absent tenderness Extremities Exam Extremities exam: Present full ROM Neurological Exam Neurological exam: Present alert, oriented X3 and CN II-XII intact Psychiatric Psychiatric exam: Present normal affect Skin Skin exam: Absent rash Medical Decision Making Medical Records
[2022-07-03 04:14] LABS: Microscopic, Urine URINE MICROSCOPIC (MICROSCOPIC)
[2022-07-03 04:17] LABS: Appearance,Urine CLEAR (Clear); Bilirubin,Urine Negative (Negative); Blood, Urine 1+ (Negative); Color,Urine YELLOW (Yellow); Glucose,Urine (UA) Negative (Negative); Ketones,Urine TRACE (Negative); Leukocyte Esterase,Urine Negative (Negative); Nitrate,Urine Negative (Negative); PH,Urine 7.5 (5.0-8.5); Protein,Urine Negative (Negative); Urobilinogen,Urine 0.2 EU/dl (0.2)
[2022-07-03 04:25] VITALS: BP 115/67; PULSE 89; RESP 18; TEMP 36.7; O2SAT 100
[2022-07-03 04:27] LABS: Amphetamine/Metha Screen,Urine Negative ng/ml (<1000)
[2022-07-03 04:28] LABS: Barbiturates Screen,Urine Negative ng/ml (<200); Benzodiazepines Screen,Urine Negative ng/ml (<200)
[2022-07-03 04:30] LABS: Cannabinoid Screen,Urine Positive ng/ml (<50)
[2022-07-03 04:31] LABS: Cocaine Screen,Urine Negative ng/ml (<300)
[2022-07-03 04:32] LABS: Methadone Screen,Urine Negative ng/ml (<300); Opiate Screen,Urine Negative ng/ml (<300)
[2022-07-03 04:33] LABS: Phencyclidine Screen,Urine Negative ng/ml (<25)
== END 2022-07-03 05:32 | disposition home or self-care (01) ==
PROVIDERS: Emergency Provider Emergency Medicine
DX: R10.9 Unspecified abdominal pain (principal); R11.2 Nausea with vomiting, unspecified; R19.7 Diarrhea, unspecified; R05.9 Cough, unspecified; Z20.822 Contact with and (suspected) exposure to COVID-19; Z88.0 Allergy status to penicillin
CPT/HCPCS: 74177; 80053; 80305; 81001; 85007; 85025; 87430; 96361; 96374; 96375; 99285; C9803; J2405; Q9967; U0003; U0005

== ENCOUNTER 2022-07-26 19:58 | Emergency (ER) | payer BC, OTHER, SELFPAY ==
[2022-07-26 19:59] VITALS: BP 138/95; PULSE 76; RESP 20; TEMP 36.5; O2SAT 100; BMI 21.1
--- NOTE | 2022-07-26 20:29 | CT_ITS ---
PROCEDURE INFORMATION: Exam: CT Abdomen And Pelvis Without Contrast Exam date and time: 07/26/2022 8:53 PM Age: 22 years old Clinical indication: Abdominal pain; Flank; Right; Additional info: R flank pain, HX stone TECHNIQUE: Imaging protocol: Computed tomography of the abdomen and pelvis without contrast. Radiation optimization: All CT scans at this facility use at least one of these dose optimization techniques: automated exposure control; mA and/or kV adjustment per patient size (includes targeted exams where dose is matched to clinical indication); or iterative reconstruction. COMPARISON: CT ABDOMEN PELVIS W CON 07/03/2022 2:36 AM FINDINGS: Liver: Normal. No mass. Gallbladder and bile ducts: Normal. No calcified stones. No ductal dilation. Pancreas: Normal. No ductal dilation. Spleen: Normal. No splenomegaly. Adrenal glands: Normal. No mass. Kidneys and ureters: There is a 6 mm calcification in the region of the mid right ureter on axial image 88, at the level of the mid sacrum. No other evidence of urolithiasis seen. There is moderate right hydroureteronephrosis and mild right perinephric edema. The left kidney appears normal. Stomach and bowel: Moderate fecal retention noted throughout the colon. Appendix: No evidence of appendicitis. Intraperitoneal space: Unremarkable. No free air. No significant fluid collection. Vasculature: Unremarkable. No abdominal aortic aneurysm. Lymph nodes: Unremarkable. No enlarged lymph nodes. Urinary bladder: Unremarkable as visualized. Reproductive: Unremarkable as visualized. Bones/joints: Unremarkable. No acute fracture. Soft tissues: Unremarkable. IMPRESSION: 6 mm mid right ureteral stone producing moderate right hydronephrosis
[2022-07-26 20:42] LABS: Chloride 100 mmol/L (98-107); Potassium 4.3 mmoL/L (3.5-5.1); Sodium 141 mmol/L (136-145)
[2022-07-26 20:44] LABS: Basophils % 0.4 % (0.1-2.0); Eosinophils # 0.1 K/mm3 (0.0-0.4); Eosinophils % 1.2 % (0.1-12.0); Hematocrit 43.9 % (42.0-52.0); Hemoglobin 14.3 g/dL (14.1-18.0); Lymphocytes % 9.9 % (10-50); Mean Corpuscular HGB Conc 32.7 g/dL (31.8-35.4); Mean Corpuscular Hemoglobin 31.6 pg (27.0-31.2); Mean Corpuscular Volume 96.8 fl (80-94); Mean Platelet Volume 7.2 fl (7.4-10.4); Monocytes # 0.4 K/mm3 (0.1-1.0); Monocytes % 4.6 % (1.7-9.3); Neutrophils # 8.1 K/mm3 (1.8-7.8); Platelet Count 226 K/mm3 (142-424); Red Blood Count 4.53 M/mm3 (4.60-6.20); Red Cell Distribution Width 13.2 % (11.5-17.5); White Blood Count 9.6 K/mm3 (4.8-10.8)
[2022-07-26 20:45] LABS: Alanine Aminotransferase 224 U/L (12-78); Albumin Level 4.6 g/dl (3.5-5.0); Albumin/Globulin Ratio 1.7 (1.1-1.8); Alkaline Phosphatase 74 U/L (38-126); Anion Gap 8.3 mEq/L (5-15); Aspartate Amino Transferase 154 U/L (17-59); Bilirubin,Total 0.6 mg/dl (0.2-1.3); Blood Urea Nitrogen 11 mg/dl (9-20); Carbon Dioxide 37 mmol/L (22.0-30.0); Creatinine Clearance Estimated 133 mL/min (50-200); Estimated Glomerular Filt Rate 107 ml/min (>60); GFR (African American) 129 ML/MIN (>60); Globulin 2.7 g/dL (1.3-3.2); Total Protein,Serum 7.3 g/dl (6.3-8.2)
[2022-07-26 20:46] LABS: Calcium 9.1 mg/dl (8.4-10.2); Glucose 133 mg/dl (74-100)
--- NOTE | 2022-07-26 21:34 | HMH.EDABDPAI ---
Discharge Plan Disposition Patient Disposition: Home, Self-Care Prescriptions Prescriptions: New tamsulosin [Flomax] 0.4 mg capsule 0.4 mg PO DAILY Qty: 10 0RF Referrals Follow up/Referrals: Hussain Miller APRN [Primary Care Provider] - See instructions Clinical Impressions Clinical Impression: Kidney stone, Renal colic on right side Stand Alone Forms Stand Alone Forms: Work/School Release Instructions Patient Instructions: DI for Kidney Stones Discharge ED Provider: Sirnivasan Crowder Abdominal Pain HPI General Chief Complaint: Abdominal Pain Stated Complaint: Right side and back pain, blood when urination Time Seen by Provider: 07/26/22 21:00 Mode of Arrival: Family Vehicle Source of Information: Patient and Medical Record Limitations: No Limitations Description of Symptoms (Recalled from ER Triage Doc. by RN): Pt c/o R flank pain with n/v that began @ 1800 tonight. He was here 06/29 and had R kidney stone. Pt denies any urological follow up. Related Data Previous Rx's Medication Instructions Recorded tamsulosin 0.4 mg capsule (Flomax) 0.4 mg PO DAILY #10 caps 07/26/22 Allergies Allergy/AdvReac Type Severity Reaction Status Date / Time Penicillins [PENICILLINS] Allergy Mild Verified 07/07/22 14:01 [facility] Disclaimer: The information contained in this section may have been updated after the patient was seen, as this information can be updated by other users. Social History Smoking Status: Current every day smoker alcohol intake: never current occupational status: other Travel in the last 8 weeks: None Medical Decision Making Vital Signs: 07/26/22 19:59 Temperature 97.7 F Temperature Source Oral Pulse Rate [Right] 76 Respiratory Rate 20 Blood Pressure [Right Arm] 138/95 H Blood Pressure Mean [Right Arm] 109 Blood Pressure Source [Right Arm] Automatic Cuff 02 Sat by Pulse Oximetry 100 Oxygen Delivery Method Room Air Lab Data Lab Results 07/26/22 20:30: WBC 9.6, RBC 4.53 L, Hgb 14.3, Hct 43.9, MCV 96.8 H, MCH 31.6 H, MCHC 32.7, RDW 13.2, Plt Count 226, MPV 7.2 L, Neut % (Auto) 84.0 H, Lymph % (Auto) 9.9 L, Sampson % (Auto) 4.6, Eos % (Auto) 1.2, Baso % (Auto) 0.4, Neut # (Auto) 8.1 H, Lymph # (Auto) 1.0, Sampson # (Auto) 0.4, Eos # (Auto) 0.1, Baso # (Auto) 0.0 07/26/22 20:30: Sodium 141, Potassium 4.3, Chloride 100, Carbon Dioxide 37 H, Anion Gap 8.3, BUN 11, Creatinine 0.90, Estimated Creat Clear 133, Estimated GFR 107, Est GFR ( Amer) 129, Glucose 133 H, Calcium 9.1, Total Bilirubin 0.6, AST 154 H, ALT 224 H, Alkaline Phosphatase 74, Total Protein 7.3, Albumin 4.6, Globulin 2.7, Albumin/Globulin Ratio 1.7 Result diagrams: 07/26/22 20:30 07/26/22 20:30 Orders (Tests/Meds): ED MEDICATIONS Discontinued Medications Generic Name Dose Route Start Last Admin Trade Name Shant PRN Reason Stop Dose Admin Acetaminophen 1,000 mg 07/26/22 20:29 07/26/22 20:34 Acetaminophen 1,000mg/100ml Vial IV 07/26/22 20:30 1,000 mg ONCE ONE Administration Sodium Chloride 1,000 mls @ 999 mls/hr 07/26/22 20:30 07/26/22 20:34 Sod Chlor 0.9% 1000ml Bag IV 07/26/22 21:30 999 mls/hr .Q1H1M DANIELLA Administration Ketorolac Tromethamine 30 mg 07/26/22 20:29 07/26/22 20:39 Ketorolac 30mg/Ml Vial IV 07/26/22 20:30 30 mg ONCE ONE Administration Ondansetron HCl 4 mg 07/26/22 20:29 07/26/22 20:34 Ondansetron 4mg/2ml Vial IV 07/26/22 20:30 4 mg ONCE ONE Administration ORDERS Category Date Time Status CT abdomen pelvis wo con ONCE Cat Scan 07/26/22 20:29 Completed Complete Blood Count Auto Diff Stat Lab 07/26/22 20:30 Completed Comprehensive Metabolic Panel Stat Lab 07/26/22 20:30 Completed Urinalysis and Microscopic Stat Lab 07/26/22 20:29 Ordered Critical Care Time Critical Care Time Attestation: On 07/26/22, the high probability of a clinica
--- NOTE | 2022-07-26 21:47 | PC.NURSE ---
pt resting comfortably. Request urine sample, pt states still unable. 1st L NS almost complete.
[2022-07-26 22:29] VITALS: BP 135/92; PULSE 72; RESP 18; TEMP 36.6; O2SAT 99
[2022-07-26 23:06] LABS: Appearance,Urine CLOUDY (Clear); Blood, Urine 3+ (Negative); Color,Urine RED (Yellow); Glucose,Urine (UA) Negative (Negative); Ketones,Urine Negative (Negative); Leukocyte Esterase,Urine TRACE (Negative); Microscopic, Urine URINE MICROSCOPIC (MICROSCOPIC); Nitrate,Urine POSITIVE (Negative); PH,Urine 7.5 (5.0-8.5); Protein,Urine 2+ (Negative); Specific Gravity, Urine 1.015 (1.005-1.030)
[2022-07-26 23:20] LABS: Bilirubin,Urine 1+ (Negative)
[2022-07-26 23:21] LABS: Bacteria,Urine Trace /lpf; RBC,Urine TNTC #/hpf (0-3); Squamous Epithelial Cell,Urine Occasional #/hpf (0-5); WBC,Urine Occasional #/hpf (0-3)
== END 2022-07-26 22:44 | disposition home or self-care (01) ==
PROVIDERS: Emergency Provider Emergency Medicine; PCP Nurse Practitioner Family
DX: N20.0 Calculus of kidney (principal); N23 Unspecified renal colic; F17.210 Nicotine dependence, cigarettes, uncomplicated
CPT/HCPCS: 74176; 80053; 81001; 85025; 96361; 96374; 96375; 99285; J0131; J2405